=== PATIENT | male | born 1980 | race Caucasian/White ===

== ENCOUNTER → 2017-09-21 11:02 | Outpatient (CLI) | payer MEDICAID, SELFPAY ==
--- NOTE | 2017-09-21 11:02 | DI.REPORT_ITS ---
SYMPTOM/DIAGNOSIS: INJURY RIGHT FOOT S99.921A RIGHT FOOT: Three views. No priors. No acute or healing fracture or dislocation is identified. The soft tissues are unremarkable. The joint spaces appear well maintained. No radiopaque foreign bodies are seen in the soft tissues. IMPRESSION: No acute abnormality
== END ==
PROVIDERS: PCP Family Medicine; Visit Provider Family Medicine
DX: M79.671 Pain in right foot (principal); S99.921A Unspecified injury of right foot, initial encounter
CPT/HCPCS: 73630

== ENCOUNTER 2021-11-29 01:33 | Outpatient (CLI) | payer MEDICAID, SELFPAY ==
[2021-11-29 12:44] LABS: ALT 37 U/L (16-63); AST 13 U/L (15-37); Albumin 4.1 g/dL (3.4-5.0); Alkaline Phosphatase 69 U/L (46-116); Anion Gap 7.4 mmol/L (3-11); BUN 15 mg/dL (7-18); Bilirubin, Total 0.9 mg/dL (0.2-1.0); CO2 28.6 mmol/L (21.0-32.0); CREATININE 0.7 mg/dL (0.70-1.30); Calcium 9.1 mg/dL (8.5-10.1); Calculated LDL 147 mg/dL (<100); Chloride 104 mmol/L (98-107); Cholesterol 215 mg/dL (<200); Estimated GFR 117.98 (mL/min/1.73m2); Glucose 105 mg/dL (74-106); HDL Cholesterol 44 mg/dL (40-60); Hemoglobin A1C 5.8 % (<5.7); Potassium 4.1 mmol/L (3.5-5.1); Sodium 140 mmol/L (136-145); TSH (W/Ref FT4) 0.61 uIU/mL (0.36-3.74); Total Protein 7.5 g/dL (6.4-8.2); Triglyceride 123 mg/dL (<150)
== END 2021-11-29 01:34 | disposition home or self-care (01) ==
LOC: LOS 01:34
PROVIDERS: PCP Nurse Practitioner; Visit Provider Nurse Practitioner Family
DX: Z00.00 Encounter for general adult medical examination without abnormal findings (principal)
CPT/HCPCS: 36415; 80053; 80061; 83036; 84443

== ENCOUNTER 2022-03-14 10:40 | Outpatient (CLI) | payer MEDICAID, SELFPAY ==
--- NOTE | 2022-03-14 08:45 | DI.RAD_ITS ---
Exam(s) XR HAND RT COMPLETE EXAM: XR HAND RT COMPLETE CLINICAL HISTORY: right hand pain. TECHNIQUE: 2D digital imaging was performed of the right hand. Three images were obtained. AP, late ral and oblique views were obtained. COMPARISON: No exams were available for comparison FINDINGS: BONES: No acute fracture is present. No bony destructive lesion is seen. 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 JOINTS: No dislocation present. SOFT TISSUE: Normal. IMPRESSION: No acute abnormality. DATA REPOSITORY: RADIATION DOSE DELIVERED:
== END 2022-03-14 10:41 | disposition home or self-care (01) ==
LOC: DIORS 10:40
PROVIDERS: PCP Nurse Practitioner Family; Visit Provider Student in an Organized Health Care Education/Training Program
DX: M79.641 Pain in right hand (principal)
CPT/HCPCS: 73130